=== PATIENT | male | born 1985 | race Caucasian/White ===

== ENCOUNTER 2023-09-23 19:46 | Emergency (ER) | payer BC ==
[2023-09-23] MEDS ORDERED: Benzonatate 100 MG Cap PO STA (21:55)
== END 2023-09-23 23:00 | disposition home or self-care (01) ==
LOC: MW.ED 19:46
DX: J06.9 Acute upper respiratory infection, unspecified (principal); Z20.822 Contact with and (suspected) exposure to COVID-19
CPT/HCPCS: 71046; 99283; A9270

== ENCOUNTER 2025-04-05 21:27 | Emergency (ER) | payer BC ==
[2025-04-05] MEDS: Sodium Chloride 0.9% 1,000 ML IV ONE (21:55)
[2025-04-05] MEDS: Acetaminophen 500 MG Tab PO ONE (21:55)
[2025-04-05] MEDS: Ondansetron 4 MG/2 ML SDV IVPUSH ONE (21:55)
[2025-04-05 22:06] LABS: BASOPHILS ABSOLUTE AUTO 0.04 K/uL (0.00-0.20); BASOPHILS PERCENT AUTO 0.4 % (0.0-1.0); EOSINOPHILS ABSOLUTE AUTO 0.13 K/uL (0.00-0.45); EOSINOPHILS PERCENT AUTO 1.2 % (0.0-6.0); HEMATOCRIT 44.5 % (42.0-52.0); HEMOGLOBIN 15.7 g/dL (14.0-18.0); IMMATURE GRAN ABSOLUTE AUTO 0.04 K/uL (0.00-0.05); IMMATURE GRAN PERCENT AUTO 0.4 % (0.0-0.4); LYMPHOCYTES ABSOLUTE AUTO 3.79 K/uL (1.00-4.80); LYMPHOCYTES PERCENT AUTO 36.1 % (24.0-44.0); MEAN CORPUSCULAR HGB CONC 35.3 g/dL (32.0-36.0); MEAN CORPUSCULAR VOLUME 90.8 fL (83.0-99.0); MEAN PLATELET VOLUME 10.3 fL (9.4-12.4); MONOCYTES ABSOLUTE AUTO 0.87 K/uL (0.00-0.80); MONOCYTES PERCENT AUTO 8.3 % (0.0-8.0); NEUTROPHILS ABSOLUTE AUTO 5.64 K/uL (1.80-7.70); NEUTROPHILS PERCENT AUTO 53.6 % (41.0-71.0); PLATELET COUNT,PLT 255 K/uL (150-400); WHITE BLOOD CELL COUNT,WBC 10.51 K/uL (3.9-11.3)
[2025-04-05 22:27] LABS: A/G RATIO 1.2 (0.9-1.6); ALANINE AMINOTRANSFERASE,ALT 71 IU/L (14-63); ALKALINE PHOSPHATASE 99 U/L (46-116); ASPARTATE AMNIOTRANSFERASE,AST 35 IU/L (15-37); BILIRUBIN TOTAL 0.7 mg/dL (0.2-1.0); BLOOD UREA NITROGEN,BUN 12 mg/dL (7.0-18.0); CALCIUM 8.7 mg/dL (8.5-10.1); CARBON DIOXIDE,CO2 25.6 mmol/L (21.0-32.0); CHLORIDE,CL 103 mmol/L (98-107); CREATINE KINASE,CK 150 U/L (26-308); EST CRCL DRUG DOSING (CG) 93.64 mL/min; GLUCOSE RANDOM 110 mg/dL (74-106); POTASSIUM,K 3.6 mmol/L (3.5-5.1); PROTEIN TOTAL,TP 7.4 g/dL (6.4-8.2); SODIUM,NA 142 mmol/L (136-148)
[2025-04-05 22:29] LABS: ESTIMATED GFR 99 mL/min (>60); ETHANOL BLOOD MEDICAL < 3.0 mg/dL
[2025-04-05] MEDS: droPERidol 2.5 MG/ML SDV IVPUSH ONE (22:36)
[2025-04-05] MEDS ORDERED: Morphine 2 MG/ML SYRINGE IVPUSH PRN (22:53)
[2025-04-05] MEDS: Iopamidol 755 MG/ML 500 ML Multipack Bottle IVPUSH ONE (22:55)
[2025-04-05 23:14] LABS: APPEARANCE,URINE CLEAR; BILIRUBIN,URINE NEGATIVE (NEGATIVE); COLOR,URINE YELLOW; GLUCOSE,URINE NEGATIVE (NEGATIVE); KETONES,URINE NEGATIVE (NEGATIVE); LEUKOCYTE ESTERASE,URINE NEGATIVE (NEGATIVE); NITRITE,URINE NEGATIVE (NEGATIVE); OCCULT BLOOD,URINE NEGATIVE (NEGATIVE); PROTEIN,URINE NEGATIVE (NEGATIVE); UROBILINOGEN,URINE 0.2 EU/dL (<2.0)
[2025-04-05 23:32] LABS: INR 1.03 (0.86-1.11); PTT,PARTIAL THROMBOPLSTIN TIME 23.7 SEC (23.9-30.7)
[2025-04-05] MEDS: niCARdipine/Normal Saline 20 MG in Premix Bag 1 BAG IV SCH (23:43)
[2025-04-05] MEDS: Morphine 2 MG/ML SYRINGE IVPUSH ONE (23:48)
[2025-04-05] MEDS: Labetalol 100 MG/20 ML MDV IVPUSH ONE ×2 (23:49)
== END 2025-04-06 00:03 ==
LOC: MW.ED 21:27
DX: I60.9 Nontraumatic subarachnoid hemorrhage, unspecified (principal); T67.9XXA Effect of heat and light, unspecified, initial encounter; R03.0 Elevated blood-pressure reading, without diagnosis of hypertension
CPT/HCPCS: 36415; 70450; 70496; 80053; 80061; 80307; 81003; 82550; 82947; 83735; 85025; 85610; 85730; 96361; 96374; 96375; 99285; A9270; J1790; J1920; J2270; J2405; J7030; Q9967; J3490